=== PATIENT | male | born 1990 | race African-American/Black ===

== ENCOUNTER 2019-09-13 09:14 | Emergency (ER) | payer SELFPAY ==
[~2019-09-13] VITALS: Ht 182.9 cm; Wt 91.0 kg
[2019-09-13] MEDS: SODIUM CHLORIDE 0.9% 1,000 ML IV ONE (09:30)
[2019-09-13] MEDS: ONDANSETRON HCL 4MG/2ML INJ IV STA (10:02)
[2019-09-13] MEDS: MORPHINE SULFATE 4 MG/ML CPJ (NOT FOR IM USE) IV STA (10:02)
[2019-09-13 10:07] LABS: HEMATOCRIT. 48.6 % (42.0-52.0); HEMOGLOBIN. 15.9 g/dL (14.0-18.0); MEAN CORPUSCULAR HEMOGLOBIN 34.9 pg (28.0-32.0); MEAN PLATELET VOLUME 7.9 fl (7.4-10.4); PLATELET 260 x1000/uL (130-400); RED BLOOD CELL COUNT 4.54 mill/uL (4.7-6.1); RED CELL DISTRIBUTION WIDTH 13.7 % (11.6-14.6)
[2019-09-13 10:18] LABS: CHLORIDE 104 mEq/L (98-107)
[2019-09-13 10:36] LABS: PLATELET ESTIMATE NORMAL
[2019-09-13 11:38] LABS: CLARITY URINE CLEAR (CLEAR); COLOR URINE YELLOW (YELLOW); KETONES URINE 2+ (NEGATIVE); LEUKOCYTE ESTERASE URINE NEGATIVE (NEGATIVE); NITRITE URINE NEGATIVE (NEGATIVE); OCCULT BLOOD URINE 1+ (NEGATIVE); PROTEIN URINE TRACE (NEGATIVE); SPECIFIC GRAVITY URINE 1.013 (1.005-1.030); UROBILINOGEN URINE 0.2 E.U./dL (0.2-1.0)
[2019-09-13] MEDS: KETOROLAC 15MG/ML VIAL IV NR (12:54)
[2019-09-13 13:20] VITALS: BP 140/81
== END 2019-09-13 13:43 | disposition home or self-care (01) ==
LOC: ER 09:14
DX: K52.9 Noninfective gastroenteritis and colitis, unspecified (principal); J18.9 Pneumonia, unspecified organism; F12.10 Cannabis abuse, uncomplicated; J45.909 Unspecified asthma, uncomplicated
CPT/HCPCS: 36415; 71045; 74176; 80053; 81003; 83690; 85025; 85610; 96361; 96374; 96375; 99284; J1885; J2270; J2405; J7030